=== PATIENT | male | born 1990 | race American Indian/Alaskan Native ===

== ENCOUNTER 2016-08-03 02:39 | Emergency (ER) | payer MEDICAID, OTHER ==
[~2016-08-03] VITALS: Ht 182.9 cm; Wt 89.3 kg
[2016-08-03] MEDS ORDERED: IBUPROFEN 200 MG TABLET ONE (04:46)
[2016-08-03] MEDS ORDERED: HYDROcodone/APAP 5/325 TABLET ONE (04:46)
[2016-08-03] MEDS ORDERED: IBUPROFEN 200 MG TABLET PO ONE (05:00)
[2016-08-03] MEDS ORDERED: HYDROcodone/APAP 5/325 TABLET PO ONE (05:00)
[2016-08-03] MEDS ORDERED: CLINDAMYCIN 300 MG CAPSULE PO ONE (05:00)
[2016-08-03] MEDS ORDERED: ONDANSETRON 4 MG TABLET PO ONE (05:00)
[2016-08-03 05:05] VITALS: BP 138/98
== END 2016-08-03 05:07 | disposition home or self-care (01) ==
LOC: ED 04:05
DX: K04.7 Periapical abscess without sinus (principal)
CPT/HCPCS: 99284; Q0162

== ENCOUNTER 2016-08-12 16:41 | Emergency (ER) | payer MEDICAID ==
[~2016-08-12] VITALS: Ht 180.3 cm; Wt 81.8 kg
[2016-08-12] MEDS ORDERED: KETOROLAC 60 MG/2 ML IM ONE (17:00)
[2016-08-12] MEDS ORDERED: LIDOCAINE 1%, 20ML INFIL ONE (17:00)
[2016-08-12] MEDS ORDERED: LIDOCAINE 1%, 20ML ONE (17:01)
[2016-08-12 18:11] VITALS: BP 143/88
[2016-08-12 18:47] LABS: HIV 1&2 ANTIBODY SCREEN Nonreactive (Nonreactive); HIV-1 p24 ANTIGEN Nonreactive (Nonreactive)
[2016-08-12 19:18] LABS: HEPATITIS C VIRUS ANTIBODY Nonreactive (Nonreactive)
== END 2016-08-12 18:13 | disposition home or self-care (01) ==
LOC: ED 18:07
DX: S02.5XXA Fracture of tooth (traumatic), initial encounter for closed fracture (principal); S02.670A Fracture of alveolus of mandible, unspecified side, initial encounter for closed fracture; S02.42XA Fracture of alveolus of maxilla, initial encounter for closed fracture; I10 Essential (primary) hypertension; Z88.1 Allergy status to other antibiotic agents; Z88.0 Allergy status to penicillin; F90.9 Attention-deficit hyperactivity disorder, unspecified type; Y04.0XXA Assault by unarmed brawl or fight, initial encounter; Y93.89 Activity, other specified; Y99.8 Other external cause status; Y92.89 Other specified places as the place of occurrence of the external cause
CPT/HCPCS: 36415; 70100; 80074; 86703; 87899; 99285; G0435

== ENCOUNTER 2020-02-04 10:35 | Emergency (ER) | payer MEDICAID ==
[~2020-02-04] VITALS: Ht 182.9 cm; Wt 88.5 kg
[2020-02-04 10:54] VITALS: BP 124/94
[2020-02-04] MEDS ORDERED: DIPH,PERTUSS(ACELL),TET VAC/PF 0.5 ML IM-VACC ONE ×2 (11:00→11:38)
[2020-02-04] MEDS ORDERED: NEOSPORIN OINT. PKT 1 PACKET ONE (11:38)
--- NOTE | 2020-02-04 13:20 | NUR ---
DURING TRIAGE NO BUGS IDENTIFIED. WHEN PT DC'D I NOTICED SEVERAL BUGS ON SHEET UNDER WHERE PT WAS LAYING. BUG COLLECTED AND SENT TO LAB. ROOM CLOSED FOR TERMINAL CLEAN. MARINE PROPULSION TECHNICIAN NOTIFIED.
== END 2020-02-04 13:23 | disposition home or self-care (01) ==
LOC: ED 12:30
DX: S60.410A Abrasion of right index finger, initial encounter (principal); S90.512A Abrasion, left ankle, initial encounter; A49.02 Methicillin resistant Staphylococcus aureus infection, unspecified site; Z59.0 Homelessness; X58.XXXA Exposure to other specified factors, initial encounter; Y93.89 Activity, other specified; Y92.89 Other specified places as the place of occurrence of the external cause; Y99.8 Other external cause status
CPT/HCPCS: 90471; 90715; 99283